=== PATIENT | female | born 1945 | race Caucasian/White ===

== ENCOUNTER 2019-08-05 23:51 | Emergency (ER) | payer OTHER ==
[~2019-08-05] VITALS: Ht 167.6 cm; Wt 113.6 kg
[~2019-08-05 23:51] MED LIST: BENA40TA56 PO; CITA10TA5 PO; DICL100T PO; MECL-77 PO; PROP120C3 PO
[2019-08-05 23:56] VITALS: Ht 167.6 cm; Wt 113.6 kg
[2019-08-06] MEDS ORDERED: ONDANSETRON 4 MG INJ IV STA (00:28)
[2019-08-06] MEDS ORDERED: MECLIZINE 12.5 MG TAB PO ONE (00:30)
[2019-08-06] MEDS ORDERED: DOCUSATE SODIUM 100 MG CAP PO PRN (04:30)
[2019-08-06] MEDS ORDERED: hydrALAzine 20 MG INJ IV PRN (04:30)
[2019-08-06] MEDS ORDERED: MECLIZINE 12.5 MG TAB PO PRN (04:30)
[2019-08-06] MEDS ORDERED: BISACODYL (EC) 5 MG TAB PO PRN (04:30)
[2019-08-06] MEDS ORDERED: NACL 0.9% 3 ML SYG IV SCH (04:30)
[2019-08-06] MEDS ORDERED: ACETAMINOPHEN 325 MG TAB PO PRN (04:30)
[2019-08-06] MEDS ORDERED: ONDANSETRON 4 MG INJ IV PRN (04:30)
[2019-08-06] MEDS: BENAZEPRIL 40 MG TAB PO SCH ×2 (07:30→09:00)
[2019-08-06] MEDS ORDERED: ASA/ACETAMINOPHEN/CAFF TAB PO ONE (07:30)
[2019-08-06] MEDS ORDERED: CITALOPRAM 20 MG TAB PO SCH (09:00)
[2019-08-06] MEDS ORDERED: ASA/ACETAMINOPHEN/CAFF TAB PO PRN (09:00)
[2019-08-06 13:40] VITALS: BP 144/59; PULSE 67; RESP 16
[2019-08-06] MEDS ORDERED: PROPRANOLOL (LA) 60 MG CAP PO SCH (21:00)
== END 2019-08-06 13:40 | disposition home or self-care (01) ==
LOC: E/R 23:51 → EDBEDREQSVC 08-06 08:57 → E/R 08-06 13:40 → CANBEDREQ 08-06 13:48
DX: R42 Dizziness and giddiness (principal); R40.2142 Coma scale, eyes open, spontaneous, at arrival to emergency department; R40.2362 Coma scale, best motor response, obeys commands, at arrival to emergency department; R40.2252 Coma scale, best verbal response, oriented, at arrival to emergency department; I10 Essential (primary) hypertension
CPT/HCPCS: 36415; 70450; 71045; 80048; 85025; 85610; 85730; 93005; 93306; 96374; 99285; J2405